=== PATIENT | female | born 1980 | race Asian ===

== ENCOUNTER 2020-04-23 10:55 | Observation (INO) | payer OTHER ==
[~2020-04-23] VITALS: Ht 165.1 cm; Wt 76.7 kg
[2020-04-23 11:29] VITALS: BP 112/56
[2020-04-23] MEDS ORDERED: PREN1CTB21 PO (11:47)
[2020-04-23 15:38] VITALS: BP 119/62
== END 2020-04-23 16:01 | disposition home or self-care (01) ==
LOC: MLD 10:55
PROVIDERS: ADMIT Obstetrics & Gynecology; ATTEND Obstetrics & Gynecology
DX: O48.0 Post-term pregnancy (principal); O36.8130 Decreased fetal movements, third trimester, not applicable or unspecified; O09.523 Supervision of elderly multigravida, third trimester; Z3A.40 40 weeks gestation of pregnancy
CPT/HCPCS: 76819; G0378